=== PATIENT | female | born 1990 ===

== ENCOUNTER 2024-08-17 05:29 | Inpatient (IN) ==
[2024-08-17] MEDS ORDERED: SODIUM CHLORIDE 0.9% 100 ML IV PRN (05:49)
[2024-08-17] MEDS ORDERED: SODIUM CHLORIDE 0.9% 50 ML IV PRN (05:49)
[2024-08-17] MEDS ORDERED: Patient's ALLERGY Info needs ENTERED STA (06:02)
[2024-08-17 06:36] LABS: Basophils # (auto) 0.05 K/uL (0.00-0.20); Basophils % (auto) 0.3 %; Eosinophils # (auto) 0.17 K/uL (0.00-0.50); Eosinophils % (auto) 1.1 %; Hematocrit (blood only) 35.4 % (37.0-47.0); Hemoglobin 11.8 g/dl (12.0-16.0); Immature Granulocytes # (auto) 0.22 K/uL (0.01-0.20); Immature Granulocytes % (auto) 1.4 %; Lymphocytes # (auto) 2.19 K/uL (1.20-3.40); Lymphocytes % (auto) 13.8 %; Mean Corpuscular Hemoglobin 29.1 pg (25.0-34.0); Mean Corpuscular Hgb Conc 33.3 g/dL (32.0-36.0); Mean Corpuscular Volume 87.4 fL (80.0-100.0); Mean Platelet Volume 11.9 fL (9.4-12.4); Monocytes # (auto) 1.31 K/uL (0.11-0.59); Monocytes % (auto) 8.2 %; Neutrophils # (auto) 11.96 K/uL (1.40-6.50); Neutrophils % (auto) 75.2 %; Platelet Count 394 K/uL (130-400); RDW Coefficient of Variation 13.6 % (11.5-14.5); RDW Standard Deviation 42.7 fL (36.4-46.3); Red Blood Count 4.05 M/uL (4.20-5.40)
[2024-08-17] MEDS: ACETAMINOPHEN 500 MG TAB PO SCH (06:42)
[2024-08-17] MEDS ORDERED: SODIUM CHLORIDE 0.9% 1,000 ML IV SCH (07:00)
[2024-08-17] MEDS: SODIUM CHLORIDE 0.9% 1,000 ML IV SCH ×3 (07:06→19:40)
[2024-08-17] MEDS: CITRIC ACID/SODIUM CITRATE 15 ML UDC PO SCH (07:31)
[2024-08-17] MEDS: ceFAZolin 3000MG 3,000 MG/72.5 ML BAG IV SCH (07:38)
[2024-08-17] MEDS ORDERED: MoRPHine SULFATE PF 1 MG/ML 10 ML AMP/VIAL ONE (07:41)
[2024-08-17] MEDS ORDERED: PHENYLEPHRINE HCL 25 MG/250 ML NSS IV ONE (07:42)
--- NOTE | 2024-08-17 07:58 | Anesthesiology Consultation ---
Date of Service August 17, 2024 Assessment & Plan Chart Review Chart Review: Acceptable Risk for Surgery Consults Requested none History Surgery Operation Date: 08/17/24 07:30 Proposed Procedures p Primary Section - Yakov Maxwell MD Height/Weight Height: 5 ft 6 in Weight: 152.861 kg Allergies Allergy/AdvReac Type Severity Reaction Status Date / Time Egg Derived Allergy Swelling Verified 08/17/24 06:20 of Lip/Tongue/Throat lactase [From Dairy Aid] Allergy Swelling Verified 08/17/24 06:20 of Lip/Tongue/Throat shellfish derived Allergy Anaphylaxis Verified 08/17/24 06:20 Medications Home Medications Medication Instructions Recorded Confirmed Last Taken famotidine 20 mg tablet (Pepcid) 20 mg PO DAILY 08/17/24 08/17/24 08/17/24 04:00 vitamin-ferrous sulfate 1 tab PO DAILY 08/17/24 08/17/24 08/16/24 09:00 27 mg iron-folic acid 0.8 mg tablet Active Medications Generic Name Dose Route Start Last Admin Trade Name Patricia PRN Reason Stop Dose Admin Acetaminophen 1,000 mg 08/17/24 06:00 08/17/24 06:42 Acetaminophen 500 Mg Tab PO 08/17/24 18:00 1,000 mg PREOP KARLY Administration Cefazolin Sodium 3,000 mg in 72.5 mls @ 130 mls/hr 08/17/24 06:00 08/17/24 07:38 Ancef 3000mg IV 08/17/24 15:47 130 mls/hr PREOP KARLY Administration Protocol NPO Date Last Intake of Fluids: 08/17/24 Time Last Intake of Fluids: 03:00 Date Last Intake of Solids: 08/16/24 Time Last Intake of Solids: 20:00 Past Surgical History Surgical History (Updated 08/17/24 @ 05:52 by Es Swan RN) Hx of tonsillectomy [place] teeth removed Social History Smoking Status: Never smoker Hx Alcohol Use: No Hx Substance Use: No Physical Exam Vital Signs Last Vital Signs Temp 36.7 C 08/17/24 05:49 Pulse 114 H 08/17/24 07:07 Resp 18 08/17/24 05:49 BP 149/82 H 08/17/24 07:07 Testing Laboratory Results 08/17/24 06:17 Blood Type O Positive 08/17/24 06:17 Antibody Screen NEGATIVE 08/17/24 06:17
[2024-08-17] MEDS ORDERED: NALOXONE HCL 1 MG in SODIUM CHLORIDE 0.9% 1,000 ML IV PRN (07:59)
[2024-08-17] MEDS ORDERED: ePHEDrine sulfate 50 MG/ML AMP IV PRN (07:59)
[2024-08-17] MEDS ORDERED: HYDROmorphone INJ 0.5 MG/0.5 ML SYR IV PRN (07:59)
[2024-08-17] MEDS ORDERED: oxyCODONE HCL IR 5 MG TAB (IMMEDIATE RELEASE) PO PRN (07:59)
[2024-08-17] MEDS ORDERED: MoRPHine SULFATE PF 1 MG/ML 10 ML AMP/VIAL INT SPINAL ONE (07:59)
[2024-08-17] MEDS ORDERED: NALOXONE HCL 0.4 MG/1 ML VIAL/CARP IV PRN (07:59)
[2024-08-17] MEDS ORDERED: PROMETHAZINE 6.25 MG/50.25 ML BAG IV PRN (07:59)
[2024-08-17] MEDS ORDERED: NALBUPHINE HCL INJ 10 MG/ML AMP IV PRN (07:59)
[2024-08-17] MEDS ORDERED: METOCLOPRAMIDE HCL 10 MG in SODIUM CHLORIDE 0.9% 50 ML IV PRN (07:59)
[2024-08-17] MEDS ORDERED: NALOXONE HCL 0.08 MG in SYRINGE 1.8 ML IV PRN (07:59)
[2024-08-17] MEDS ORDERED: diphenhydrAMINE 50 MG/ML VIAL IV PRN (07:59)
[2024-08-17] MEDS ORDERED: MoRPHine SULFATE 2 MG/ML CARP IV PRN (07:59)
[2024-08-17] MEDS ORDERED: MEPERIDINE HCL 25 MG/ML CARP/VIAL IV PRN (07:59)
[2024-08-17] MEDS ORDERED: NO NARCOTICS OR SEDATIVES SCH (08:00)
[2024-08-17] MEDS ORDERED: DC INTRASPINAL MORPHINE SCH (08:00)
--- NOTE | 2024-08-17 08:13 | History & Physical Report ---
Date of Service August 17, 2024 Assessment & Plan (1) Delivery by elective section: Plan: planned per patient request Admission and Anticipated Discharge Date Admission Date: August 17, 2024 History of Present Illness Chief Complaint: on demand Primary Care Provider: KIERAN PCP 34 F P0000 at [facility] with scheduled due to maternal request on demand. Allergies Allergy/AdvReac Type Severity Reaction Status Date / Time Egg Derived Allergy Swelling Verified 08/17/24 06:20 of Lip/Tongue/Throat lactase [From Dairy Aid] Allergy Swelling Verified 08/17/24 06:20 of Lip/Tongue/Throat shellfish derived Allergy Anaphylaxis Verified 08/17/24 06:20 Home Medications Medication Instructions Recorded Confirmed Type famotidine 20 mg tablet (Pepcid) 20 mg PO DAILY 08/17/24 08/17/24 History vitamin-ferrous sulfate 1 tab PO DAILY 08/17/24 08/17/24 History 27 mg iron-folic acid 0.8 mg tablet Patient History Surgical History Hx of tonsillectomy [place] teeth removed Social History Smoking Status: Never smoker Hx Alcohol Use: No Hx Substance Use: No Preferred Language: Chinese Surgical Supply Assistant Required: No Beliefs That Will Affect Care: None marital status: Current Living Situation: Family Other Information That Helps Us Care for You: No Feels Safe at Home: Yes OB History 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 Review of Systems All systems reviewed & are unremarkable except as noted in HPI & below Physical Exam Constitutional: WD/WN, vitals as above Eyes: PERRL, conjunctivae normal, anicteric sclerae Respiratory: normal respiratory effort, lungs clear to auscultation Cardiovascular: RRR, no murmur, no edema Gastrointestinal (Abdomen): Inspection/Auscultation: abdomen normal to inspection morbidly obese Musculoskeletal: Extremities: extremities normal to inspection Skin: no rashes, warm and dry Neurologic: patellar DTR's 2+ bilat, sensation intact Psychiatric: A+Ox3, euthymic affect Genitourinary: OB Exam Monitor Tracing: + external FHT monitor used, + external uterine monitor used, + category I and + normal FHT variability Results & Data Vital Signs (Past 12 Hours) Vital Signs Temp Pulse Resp BP 08/17/24 07:07 114 H 149/82 H 08/17/24 06:24 125 H 134/90 08/17/24 05:49 36.7 C 18 Laboratory Results Laboratory Results - last 72 hr 08/17/24 06:17 WBC 15.90 H RBC 4.05 L Hgb 11.8 L Hct 35.4 L MCV 87.4 MCH 29.1 MCHC 33.3 RDW Std Deviation 42.7 RDW Coeff of Megan 13.6 Plt Count 394 MPV 11.9 Immature Gran % (Auto) 1.4 Neut % (Auto) 75.2 Lymph % (Auto) 13.8 [place] % (Auto) 8.2 Eos % (Auto) 1.1 Baso % (Auto) 0.3 Neut # (Auto) 11.96 H Lymph # (Auto) 2.19 [place] # (Auto) 1.31 H Eos # (Auto) 0.17 Baso # (Auto) 0.05 Immature Gran # (Auto) 0.22 H Treponema pallidum Ab Negative Blood Type O Positive Antibody Screen NEGATIVE Crossmatch See Detail Monitoring External Monitor Cat 1
[2024-08-17] MEDS ORDERED: OXYTOCIN 10 UNITS/ML VIAL ONE ×2 (08:52)
[2024-08-17] MEDS ORDERED: ACETAMINOPHEN 1,000 MG/100 ML VIAL IV PRN (09:19)
[2024-08-17] MEDS: OXYTOCIN 20 UNITS/LR 1,002 ML IV SCH (09:35)
--- NOTE | 2024-08-17 09:58 | Post Operative Brief Note ---
Immediate Post Op Note Date of Surgery August 17, 2024 Pre & Post Diagnosis Operation Date: 08/17/24 07:30 Pre-Op Diagnosis: High Risk , Obesity in Post-Op Diagnosis: High Risk , Obesity in I identified the patient and participated in the time-out.: Yes Procedure Operation Date: 08/17/24 07:30 Actual Procedures p Primary Section; delivery of live female at 0847 - Yakov Maxwell MD Surgeon Yakov Maxwell MD Client Manager Large Law Dr. Snell and Carmina Salter PA-C Estimated Blood Loss 219 Findings Consistent with Post-Op Diagnosis live female Apgars 8/9 weight 8-11 Fluids 1500 ml. Specimens placenta Drains Hsu Catheter (inserted after spinal with return of dark yellow urine) Anesthesia Type Spinal Complications none Disposition Accompanied Patient To Recovery: Yes Overlapping Procedure I was present for: the critical portions of procedure. I was immediately available: during the entire case. Back up surgeon: used during listed procedure.
[2024-08-17] MEDS: KETOROLAC 30 MG/ML VIAL IV PRN (10:00)
[2024-08-17] MEDS ORDERED: SENNA 8.6 MG TAB PO PRN (10:05)
[2024-08-17] MEDS ORDERED: MAGNESIUM HYDROXIDE SUSP 30 ML UDC PO PRN (10:05)
[2024-08-17] MEDS ORDERED: DIPHTHER/TETAN/PERTUS Vaccine (Tdap, Adol/Adult) 0.5mL IM ONE (10:05)
[2024-08-17] MEDS ORDERED: HYDROCORTISONE ACETATE 25 MG SUPP PR PRN (10:05)
[2024-08-17] MEDS ORDERED: BENZOCAINE 20% SPRY 85 APPLN/85 GM CAN EXT PRN (10:05)
[2024-08-17] MEDS ORDERED: CALCIUM CARBONATE 500 MG CHEWABLE TAB PO PRN (10:05)
--- NOTE | 2024-08-17 10:11 | Operative Report ---
Post Operative Report Pre & Post Diagnosis Operation Date: 08/17/24 07:30 Pre-Op Diagnosis: High Risk , Obesity in Post-Op Diagnosis: High Risk , Obesity in I identified the patient and participated in the time-out.: Yes Procedure Operation Date: 08/17/24 07:30 Actual Procedures p Primary Section; delivery of live female at 0847 - Yakov Maxwell MD Surgeon Yakov Maxwell MD Terminal Computer Operator Dr. Snell and Carmina Salter PA-C Estimated Blood Loss 219 Findings Consistent with Post-Op Diagnosis live female Apgars 8/9 weight 8-11 Fluids 1500 ml. Specimens placenta Drains Hsu Anesthesia Type Spinal Complications none Disposition Accompanied Patient To Recovery: Yes Indications section on maternal demand Description of Procedure Under satisfactory spinal anesthesia the patient was prepped and draped in the usual sterile fashion. A timeout was called after the patient was identified and antibiotics were given preop. A low Pfannenstiel incision through several layers of the abdomen were carried down into the abdominal cavity in successive layers. The peritoneum was opened in the AP diameter. The bladder flap was then made with sharp dissection using Metzenbaum scissors. An extra large self- retaining Reddy retractor was then placed. A low segment transverse incision over the lower uterine segment was made. The incision was then widened in the AP diameter and nicked and thick meconium was noted. The baby was in the vertex presentation and a transverse lie. The baby was then delivered from the vertex presentation with the aid of fundal pressure the baby was suctioned and there was delayed cord clamping. Delivery of a live female Apgars were 8 and 9 weight was 8 pounds 11 ounces baby handed to food production supervisor for warming and resuscitation. Cord blood was then obtained placenta delivered spontaneously and intact and submitted to pathology. The uterus was then exteriorized ring forceps were then placed on both angles and the inferior margin. A clean lap pad was then used to clean all clots and debris of the anterior of the uterus the tubes ovaries bilaterally were found to be within normal limits the uterus was then closed in a double layer closure starting with 0 Vicryl suture in a continuous interlocking fashion. A second imbricating suture of 0 Vicryl suture was then used to close the uterus. The initial sponge needle count needle and instrument count were found to be correct. The Reddy retractor was then removed the initial count being correct muscle was then reapproximated with several [id number] 0 Vicryl sutures. The fascia was reapproximated from both ends using #1 Vicryl suture in a continuous fashion. The subcuticular layer was then reapproximated with 3-0 plain suture. The skin was then reapproximated with 4-0 Monocryl subcuticular stitch. The final sponge needle instrument count were found to be correct the abdoul dressing was then applied the patient was then taken to recovery room in stable condition. QBL is 219 mL the total fluids were 1500 mL and the urine output was 25 mL. Please note that Dr. Snell was needed to provide retraction assistance with closure of the uterus fundal pressure to deliver the baby and assistance at closure of the abdomen. No qualified resident was available. I attest to the content of the Intraoperative Record and any orders documented therein. Any exceptions are noted below.
[2024-08-17] MEDS ORDERED: KETOROLAC 30 MG/ML VIAL IV SCH (10:15)
--- NOTE | 2024-08-17 10:49 | Anesthesiology Progress Note ---
Date of Service August 17, 2024 Anesthesia Post Procedure Vital Signs Vital Signs: Temp Pulse Resp BP Pulse Ox O2 Del Method 08/17/24 10:46 107 H 137/74 08/17/24 10:45 105 H 92 08/17/24 10:40 101 H 95 08/17/24 10:36 98 H 138/75 08/17/24 10:35 101 H 95 08/17/24 10:30 99 H 95 08/17/24 10:29 102 H 94 08/17/24 10:27 98 H 143/72 H 08/17/24 10:25 98 H 20 143/72 H 08/17/24 10:25 100 H 96 08/17/24 10:20 105 H 96 08/17/24 10:16 101 H 141/74 H 08/17/24 10:15 100 H 18 96 08/17/24 10:15 102 H 98 08/17/24 10:10 105 H 98 08/17/24 10:06 100 H 143/76 H 08/17/24 10:05 100 H 18 98 08/17/24 10:05 18 08/17/24 10:05 100 H 98 08/17/24 10:00 110 H 99 08/17/24 09:56 103 H 145/71 H 08/17/24 09:55 110 H 18 99 08/17/24 09:55 18 Room Air 08/17/24 09:55 101 H 99 08/17/24 09:50 97 H 99 08/17/24 09:46 103 H 135/67 08/17/24 09:45 110 H 20 99 08/17/24 09:45 18 08/17/24 09:45 105 H 100 08/17/24 09:40 102 H 100 08/17/24 09:36 104 H 136/67 08/17/24 09:35 35.6 C L 20 99 Room Air 08/17/24 09:35 105 H 99 08/17/24 07:07 114 H 149/82 H 08/17/24 06:24 125 H 134/90 08/17/24 05:49 36.7 C 18 Transfer of Care Handoff Completed per policy Notes Mental Status: alert / awake / arousable and participated in evaluation Nausea / Vomiting: adequately controlled Pain: adequately controlled Airway Patency, RR, SpO2: stable & adequate BP & HR: stable & adequate Hydration State: stable & adequate Neuraxial Anesthesia: was administered and sensory block is resolving Anesthetic Complications: no major complications apparent and Pt Satisfied with anesthetic care
[2024-08-17] MEDS: ONDANSETRON INJ 2 MG/ML 2 ML VIAL IV PRN (12:04)
[2024-08-17] MEDS: SIMETHICONE 80 MG CHEW PO SCH (15:03)
[2024-08-17] MEDS: SODIUM CHLORIDE 0.9% 1,000 ML IV ONE ×2 (15:47→18:24)
[2024-08-17 17:33] VITALS: RESP 18
[2024-08-17] MEDS: ACETAMINOPHEN 325 MG TAB PO SCH (17:36)
[2024-08-17] MEDS: KETOROLAC 30 MG/ML VIAL IV SCH (17:37)
[2024-08-17] MEDS: PROMETHAZINE 12.5 MG/50.5 ML BAG IV PRN (17:58)
[2024-08-17] MEDS: DOCUSATE SODIUM 100 MG CAP PO SCH (22:17)
[2024-08-18] MEDS ORDERED: PROMETHAZINE 12.5 MG/50.5 ML BAG IV PRN ×2 (01:59→02:00)
[2024-08-18] MEDS ORDERED: ONDANSETRON INJ 2 MG/ML 2 ML VIAL IV PRN (02:00)
[2024-08-18] MEDS ORDERED: oxyCODONE HCL IR 5 MG TAB (IMMEDIATE RELEASE) PO PRN (02:00)
[2024-08-18] MEDS ORDERED: diphenhydrAMINE 50 MG/ML VIAL IV PRN (02:00)
[2024-08-18] MEDS ORDERED: HYDROmorphone INJ 0.5 MG/0.5 ML SYR IV PRN (02:00)
[2024-08-18] MEDS: diphenhydrAMINE Capsule 25 MG CAP PO PRN (03:51)
[2024-08-18 06:02] LABS: Basophils # (auto) 0.04 K/uL (0.00-0.20); Basophils % (auto) 0.2 %; Eosinophils # (auto) 0.16 K/uL (0.00-0.50); Eosinophils % (auto) 0.8 %; Hematocrit (blood only) 33.3 % (37.0-47.0); Immature Granulocytes # (auto) 0.19 K/uL (0.01-0.20); Lymphocytes # (auto) 2.16 K/uL (1.20-3.40); Lymphocytes % (auto) 10.9 %; Mean Corpuscular Hemoglobin 29.5 pg (25.0-34.0); Mean Corpuscular Volume 89.3 fL (80.0-100.0); Mean Platelet Volume 11.7 fL (9.4-12.4); Monocytes # (auto) 1.65 K/uL (0.11-0.59); Monocytes % (auto) 8.3 %; Neutrophils # (auto) 15.65 K/uL (1.40-6.50); Neutrophils % (auto) 78.8 %; Platelet Count 371 K/uL (130-400); RDW Coefficient of Variation 13.7 % (11.5-14.5); RDW Standard Deviation 44.6 fL (36.4-46.3); Red Blood Count 3.73 M/uL (4.20-5.40); White Blood Count 19.85 K/ul (4.8-10.8)
--- NOTE | 2024-08-18 08:45 | Obstetrical Progress Note ---
Date of Service August 18, 2024 Assessment & Plan Admission and Anticipated Discharge Date Admission Date: August 17, 2024 Subjective Patient is seen and examined. She feels well, no complaints. Desires to go home today Pain is under control with oral meds. Ambulating without dizziness+ Voiding without difficulty Tolerating regular diet with out N&V Flatus + BM neg Bleeding is minimal No fever/ chills/ CP/ SOB/ N&V/ Leg pain Bottle feeding without problems Vital Signs Temp Pulse Resp BP Pulse Ox O2 Del Method 08/18/24 03:00 36.7 C 97 H 18 128/84 97 Room Air 08/18/24 02:00 18 95 08/18/24 01:00 18 96 08/18/24 00:00 18 96 08/17/24 23:00 36.3 C L 112 H 18 118/68 98 Room Air 08/17/24 23:00 18 98 08/17/24 22:30 18 98 08/17/24 21:30 18 98 Lab Results 08/17/24 08/18/24 Range/Units 06:17 05:49 WBC 15.90 H 19.85 H (4.8-10.8) K/ul RBC 4.05 L 3.73 L (4.20-5.40) M/uL Hgb 11.8 L 11.0 L (12.0-16.0) g/dl Hct 35.4 L 33.3 L (37.0-47.0) % MCV 87.4 89.3 (80.0-100.0) fL MCH 29.1 29.5 (25.0-34.0) pg MCHC 33.3 33.0 (32.0-36.0) g/dL RDW Std Deviation 42.7 44.6 (36.4-46.3) fL RDW Coeff of Megan 13.6 13.7 (11.5-14.5) % Plt Count 394 371 (130-400) K/uL MPV 11.9 11.7 (9.4-12.4) fL Immature Gran % (Auto) 1.4 1.0 % Neut % (Auto) 75.2 78.8 % Lymph % (Auto) 13.8 10.9 % [place] % (Auto) 8.2 8.3 % Eos % (Auto) 1.1 0.8 % Baso % (Auto) 0.3 0.2 % Neut # (Auto) 11.96 H 15.65 H (1.40-6.50) K/uL Lymph # (Auto) 2.19 2.16 (1.20-3.40) K/uL [place]iken # (Auto) 1.31 H 1.65 H (0.11-0.59) K/uL Eos # (Auto) 0.17 0.16 (0.00-0.50) K/uL Baso # (Auto) 0.05 0.04 (0.00-0.20) K/uL Immature Gran # (Auto) 0.22 H 0.19 (0.01-0.20) K/uL Treponema pallidum Ab Negative (Negative) Blood Type O Positive Antibody Screen NEGATIVE Crossmatch See Detail PE: General: Alert, orientedx3, NAD CVS: S1S2 RRR Lungs; CTAB Abd: soft, NT, ND, BS+, fundus firm, below Umbilicus Incision/ DC dressing: Clean, dry, intact Perineum intact, Lochia rubra minimal Ext; NT, no edema AP: 34 yo s/p C Section, pod# 1 VSS Afebrile doing well Continue routine postop care Encourage ambulation, PO intake ( changed her diet to Vegan) All questions were answered Desires d/c tonight Plan to repeat CBC at 5pm and d/c Declined prescription for Oxycodone Discussed when to call D/C home , f/u in office Results & Data Vital Signs (Past 12 Hours) Vital Signs Temp Pulse Resp BP Pulse Ox O2 Del Method 08/18/24 03:00 36.7 C 97 H 18 128/84 97 Room Air 08/18/24 02:00 18 95 08/18/24 01:00 18 96 08/18/24 00:00 18 96 08/17/24 23:00 36.3 C L 112 H 18 118/68 98 Room Air 08/17/24 23:00 18 98 08/17/24 22:30 18 98 08/17/24 21:30 18 98
[2024-08-18] MEDS ORDERED: NON-FORMULARY MEDICATION (Prenatal Vit-Ferrous Sulfat-Fa 27 mg iron- 0.8 mg Tablet) PO SCH (09:00)
[2024-08-18] MEDS: PRENATAL VITAMIN 1 TAB PO SCH (09:15)
[2024-08-18] MEDS: FERROUS SULFATE 325 MG TAB PO SCH (09:15)
[2024-08-18 10:00] VITALS: TEMP 97.3
[2024-08-18] MEDS ORDERED: KETOROLAC 30 MG/ML VIAL IV PRN (10:02)
[2024-08-18] MEDS: IBUPROFEN 600 MG TAB PO SCH (11:43)
[2024-08-18] MEDS: FAMOTIDINE 20 MG TAB PO SCH (14:34)
[2024-08-18 17:04] LABS: Basophils # (auto) 0.04 K/uL (0.00-0.20); Basophils % (auto) 0.2 %; Eosinophils # (auto) 0.15 K/uL (0.00-0.50); Eosinophils % (auto) 0.8 %; Hemoglobin 10.8 g/dl (12.0-16.0); Immature Granulocytes # (auto) 0.12 K/uL (0.01-0.20); Immature Granulocytes % (auto) 0.7 %; Lymphocytes # (auto) 2.43 K/uL (1.20-3.40); Lymphocytes % (auto) 13.7 %; Mean Corpuscular Hemoglobin 29.2 pg (25.0-34.0); Mean Corpuscular Hgb Conc 32.7 g/dL (32.0-36.0); Mean Corpuscular Volume 89.2 fL (80.0-100.0); Mean Platelet Volume 11.7 fL (9.4-12.4); Monocytes # (auto) 1.55 K/uL (0.11-0.59); Monocytes % (auto) 8.7 %; Neutrophils # (auto) 13.51 K/uL (1.40-6.50); Neutrophils % (auto) 75.9 %; Platelet Count 365 K/uL (130-400); RDW Coefficient of Variation 13.8 % (11.5-14.5); RDW Standard Deviation 44.4 fL (36.4-46.3)
[2024-08-18 17:44] VITALS: BP 138/88; PULSE 100; O2SAT 99
[2024-08-18] MEDS ORDERED: bisacodyL 5 MG TABEC PO SCH (20:00)
[2024-08-19] MEDS ORDERED: IBUPROFEN 600 MG TAB PO PRN (10:02)
[2024-08-19] MEDS ORDERED: bisacodyL 10 MG SUPP PR PRN (10:02)
[2024-08-19] MEDS ORDERED: ACETAMINOPHEN 325 MG TAB PO PRN (16:02)
== END 2024-08-18 18:20 | disposition home health service (06) | DRG 787 ==
LOC: 4S1 05:29 → 4E2 12:22 → EDSTATUS 10-18 07:30
DX: O99.214 Obesity complicating childbirth; Z79.899 Other long term (current) drug therapy; Z68.43 Body mass index [BMI] 50.0-59.9, adult; Z91.011 Allergy to milk products; E66.813 Obesity, class 3; Z91.012 Allergy to eggs; Z37.0 Single live birth; Z3A.40 40 weeks gestation of pregnancy; Z91.013 Allergy to seafood